=== PATIENT | female | born 1965 | race Caucasian/White ===

== ENCOUNTER 2017-10-02 09:27 | Emergency (ER) | payer BC ==
[~2017-10-02] VITALS: Ht 162.6 cm; Wt 75.8 kg
[~2017-10-02 09:27] MED LIST: ALPRAZOLAM0.5 MG PO; FLEXERIL5 MG PO
[2017-10-02] MEDS ORDERED: LIDODERM 5% P1 PATCH TD (10:34)
[2017-10-02] MEDS ORDERED: MOTRIN600 MG PO (10:34)
[2017-10-02 11:21] VITALS: BP 154/94
== END 2017-10-02 11:23 | disposition home or self-care (01) ==
LOC: EME 09:27
DX: M54.32 Sciatica, left side (principal); M54.31 Sciatica, right side; Z88.5 Allergy status to narcotic agent
CPT/HCPCS: 73522; 99281; 99284; J1885